=== PATIENT | female | born 1970 | race Caucasian/White ===

== ENCOUNTER → 2016-06-22 | Outpatient (REF) ==
--- NOTE | 2016-06-22 10:48 | REP ---
AP LATERAL CERVICAL SPINE, THREE VIEWS: HISTORY: Degenerative disc disease. The cervical spine is visualized from C1 to C7 in the lateral radiograph. There is no acute fracture or subluxation. The C5-6 intervertebral disc is decreased in height consistent with disc degeneration. Osteophytes are present on C4 through C6. Calcification is present anterior to the C4-5 and C5-6 intervertebral discs. This represents calcification of the anterior longitudinal ligament. IMPRESSION: Degenerative change as described above. Signed by Odell Osman MD 06/22/2016 11:09 A
--- NOTE | 2016-06-22 10:49 | REP ---
LEFT KNEE, FIVE VIEWS: HISTORY: Degenerative joint disease. There is no acute fracture or dislocation. There is narrowing of the joint spaces. Osteophytes are present on the patella. IMPRESSION: Degenerative change as described above. Signed by Odell Osman MD 06/22/2016 11:09 A
== END ==
LOC: M SMT 10:02
PROVIDERS: ATTEND Internal Medicine
DX: M50.322 Other cervical disc degeneration at C5-C6 level (principal); M25.78 Osteophyte, vertebrae; M50.90 Cervical disc disorder, unspecified, unspecified cervical region; M25.762 Osteophyte, left knee; M25.862 Other specified joint disorders, left knee